=== PATIENT | female | born 1970 | race Caucasian/White ===

== ENCOUNTER → 2016-08-17 | Outpatient (CLI) | payer OTHER ==
[~2016-08-17] MED LIST: CHOL400T PO; COEN1CAP17 PO; CYAN100T PO; DEXL60CA4 PO; GABA-113 PO; GLUCTAB7 PO; IBUP-103 PO; LYR/50 PO; METH500T37 PO; OMEG10002 PO
--- NOTE | 2016-08-17 16:37 | DIAGNOSTIC IMAGING REPORT ---
ULTRASOUND OF THE THYROID GLAND CLINICAL HISTORY: Nontoxic multinodular goiter. COMPARISON STUDY: Thyroid ultrasound dated 11/07/2011. TECHNIQUE: Real-time, grayscale, and color flow sonography of the thyroid gland is performed utilizing a high-frequency linear transducer. Images are reviewed in the transverse and longitudinal planes. FINDINGS: Right lobe: The right lobe of the thyroid gland is normal in size and homogeneous in echotexture, measuring 5.2 x 1.4 x 1.8 cm. A hypoechoic nodule in the posterior midpole measures 1.1 x 0.8 x 0.9 cm (previously measured 1.1 x 0.7 x 0.9 cm) Left lobe: The left lobe of the thyroid gland is normal in size and homogeneous in echotexture, measuring 4.9 x 0.9 x 1.4 cm. A hypoechoic nodule in the posterior midpole measures 0.8 x 0.4 x 0.7 cm (previously measured 0.6 x 0.3 x 0.5 cm). Isthmus: The thyroid isthmus is normal in appearance and measures 0.2 cm in AP diameter. IMPRESSION: Bilateral thyroid nodules as above, not significantly changed from 11/07/2011. Electronically signed by: Solomon Nunez M.D. 08/17/2016 4:36 PM Dictated Date/Time: 08/17/2016 4:34 PM
[2016-08-17 17:40] LABS: THYROID STIMULATING HORMONE 0.925 uIu/ml (0.300-4.500)
== END | disposition home or self-care (01) ==
LOC: C.ULTR 16:00
PROVIDERS: ATTEND Nurse Practitioner Family
DX: E04.2 Nontoxic multinodular goiter (principal)

== ENCOUNTER → 2016-08-31 | Outpatient (CLI) | payer OTHER ==
[~2016-08-31] MED LIST changes: +GADAVIST IV PRN
--- NOTE | 2016-08-31 14:34 | DIAGNOSTIC IMAGING REPORT ---
BRAIN COMBO FOR MS CLINICAL HISTORY: Double vision. Memory loss. Vision loss. COMPARISON STUDY: MRI of the brain September 15, 2014. TECHNIQUE: Utilizing 1.5 Gracie magnet, multiplanar, multiecho imaging of the brain was performed pre and postcontrast administration. Injection of 5.9 cc of Gadavist IV was uneventful. FINDINGS: No areas of restricted diffusion. Brain volume is normal. No acute intracranial hemorrhage, midline shift or mass effect is present. Ventricular system is normal. The basilar cisterns are patent. There are no extra-axial collections. No intracranial masses or areas of pathologic enhancement are present. The bilateral mastoid air cells are partially opacified. There is mucosal thickening within air-fluid level within the left maxillary sinus which is largely opacified. There is extensive mucosal thickening of the left ethmoid sinuses and moderate mucosal thickening of the right sphenoid sinus. There is partial opacification of the frontal sinuses. Orbits are unremarkable. A few punctate white matter T2 hyperintense foci are noted. IMPRESSION: 1. No acute intracranial findings. 2. No intracranial masses or pathologic enhancement. 3. A few punctate foci signal abnormality within the white matter, which could reflect the sequela of migraine headaches or minimal small vessel disease. 4. Extensive sinusitis, including suspected acute left maxillary sinusitis. 5. Partially opacified bilateral mastoid air cells. Electronically signed by: Sameer Ramos M.D. 08/31/2016 1:10 PM Dictated Date/Time: 08/31/2016 12:59 PM
== END | disposition home or self-care (01) ==
LOC: C.MRI 11:34
PROVIDERS: ATTEND Physician Assistant
DX: H53.129 Transient visual loss, unspecified eye (principal); H53.2 Diplopia; H57.10 Ocular pain, unspecified eye; M62.81 Muscle weakness (generalized); R41.3 Other amnesia

== ENCOUNTER 2016-12-10 08:28 | Emergency (ER) | payer OTHER ==
[~2016-12-10] VITALS: Ht 167.6 cm; Wt 58.0 kg
[~2016-12-10 08:28] MED LIST changes: -CHOL400T PO; -COEN1CAP17 PO; -GADAVIST IV PRN; -GLUCTAB7 PO; -LYR/50 PO; -OMEG10002 PO
[2016-12-10 08:29] VITALS: TEMP 36.5; Ht 167.6 cm; Wt 58.0 kg
[2016-12-10 08:41] VITALS: O2SAT 100
[2016-12-10] MEDS ORDERED: SODIUM CHLORIDE 0.9% 1000ML 1,000 ML IV STA (09:04)
--- NOTE | 2016-12-10 09:16 | EMERGENCY ROOM VISIT NOTE ---
History First contact with patient: 08:51 Chief Complaint: SYNCOPE (NEAR SYNCOPE) Stated Complaint: SYNCOPE,NUMBNESS,BACK PAIN,LACK OF OXYGEN Nursing Triage Summary: near syncope today while having a BM today History of Present Illness The patient is a 46 year old female who presents to the Emergency Room with complaints of near syncope this morning at about 7:30 AM. Patient states she was on the toilet trying to have a bowel movement when she felt a sudden sharp pain in her rectum and became lightheaded, weak all over, diaphoretic, short of breath, and states she felt like she was going to pass out. Patient states she called out for her , who came into the bathroom and caught her, so she did not fall or have any injuries. Patient states she did not go completely unconscious. Patient states she has had a similar episode like this twice in the past about 3 or 4 years ago, both times while she was tried to have a bowel movement. She denies any headache, vision changes, chest pain, palpitations, back pain, abdominal pain, nausea or vomiting, diarrhea, urinary symptoms, or rash. She states she has been generally well recently. Patient does note that she recently returned on a flight from [facility] 4 days ago. She denies any exogenous estrogen use, leg pain or swelling. Review of Systems A complete 10 point review of systems was reviewed with the patient with pertinent positives and negatives as per history of present illness. All else were negative. Past Medical/Surgical History Medical Problems: (1) Kidney disease (2) Thyroid-related proptosis Surgical Problems: (1) History of appendectomy (2) History of thyroidectomy Family History Kidney disease Kidney stones Social History Smoking Status: Never Smoker Alcohol Use: none Drug Use: none Marital Status: Housing Status: lives with family Occupation Status: unemployed Current/Historical Medications Scheduled Cholecalciferol (Vitamin D), 400 UNITS PO DAILY Coenzyme Q10 (Ubidecarenone) (Co Q 10), 100 MG PO DAILY Cyanocobalamin (Vitamin B-12), 100 MCG PO DAILY Dexlansoprazole (Dexilant), 60 MG PO DAILY Opgtwjihvwo-Utfiugrhyyw-Bnz C- (Glucosamine Chondroitin), 1 TAB PO DAILY [place]-3 Fatty Acids (Fish Oil), 1,000 MG PO BID Pregabalin (Lyrica), 50 MG PO BID Scheduled PRN Ibuprofen Tab (Advil), 400 MG PO Q4 PRN for Pain Methocarbamol (Robaxin), 500 MG PO DAILY PRN for Muscle Spasms Allergies Coded Allergies: Ciprofloxacin (Unverified Allergy, Unknown, ., 12/10/16) Physical Exam Vital Signs Date Time Temp Pulse Resp B/P (MAP) Pulse Ox O2 Delivery O2 Flow Rate FiO2 12/10/16 11:45 60 15 98/62 99 Room Air 12/10/16 10:46 51 16 120/70 100 Room Air 12/10/16 09:35 52 16 100/67 99 Room Air 12/10/16 09:31 52 12/10/16 09:19 51 104/67 58 117/62 67 113/70 12/10/16 08:41 100 Room Air 12/10/16 08:29 36.5 61 18 111/74 100 Room Air Physical Exam CONSTITUTIONAL: No acute distress. Well hydrated. Well appearing and well nourished. Alert and oriented X 4 with normal affect. HEENT: Normocephalic, atraumatic. Pupils equal, round and reactive to light, EOMI. TMs normal. Pharynx normal. Moist mucous membranes. NECK: Supple, full active range of motion without discomfort. RESPIRATORY: Clear to auscultation bilaterally with no wheezing, crackles, rhonchi or stridor. Equal expansion bilaterally. CARDIOVASCULAR: Regular rate and rhythm with no murmurs, rubs or gallops. Normal peripheral perfusion. No edema. GASTROINTESTINAL: Soft, nontender, nondistended. Bowel sounds present in all quadrants. MUSCULOSKELETAL: Full range of motion of all joints without discomfort. No calf pain, erythema, or swelling noted. INTEGUMENTARY: No rash or other significant dermatologic conditions noted. NEUROLOGIC: Cranial nerves II-XII grossly intact. No focal neurologic deficits noted. Medical Decision & Procedures ER Provider Diagnostic Interpretation: CHEST 2 VIEWS ROUTINE CLINICAL HISTORY: EVALUATE ALTERED MENTAL STATUS/WEAKNESS dyspnea COMPARISON STUDY: No previous studies for comparison. FINDINGS: The bones soft tissues and hemidiaphragms are normal. The cardiomediastinal silhouette is normal. The lungs are clear. The pulmonary vasculature is normal. IMPRESSION: Negative chest. Laboratory Results 12/10/16 08:45 Red Blood Count 4.75, Mean Corpuscular Volume 90.9, Mean Corpuscular Hemoglobin 31.8, Mean Corpuscular Hemoglobin Concent 35.0, Mean Platelet Volume 11.2, Neutrophils (%) (Auto) 62.0, Lymphocytes (%) (Auto) 23.9, Monocytes (%) (Auto) 9.1, Eosinophils (%) (Auto) 4.4, Basophils (%) (Auto) 0.4, Neutrophils # (Auto) 3.40, Lymphocytes # (Auto) 1.31, Monocytes # (Auto) 0.50, Eosinophils # (Auto) 0.24, Basophils # (Auto) 0.02 12/10/16 08:45 Test 12/10/16 08:45 12/10/16 09:19 12/10/16 09:26 12/10/16 09:29 White Blood Count 5.48 K/uL (4.8-10.8) Red Blood Count 4.75 M/uL (4.2-5.4) Hemoglobin 15.1 g/dL (12.0-16.0) Hematocrit 43.2 % (37-47) Mean Corpuscular Volume 90.9 fL (80-100) Mean Corpuscular Hemoglobin 31.8 pg (25-34) Mean Corpuscular Hemoglobin Concent 35.0 g/dl (32-36) Platelet Count 252 K/uL (130-400) Mean Platelet Volume 11.2 fL (7.4-10.4) Neutrophils (%) (Auto) 62.0 % Lymphocytes (%) (Auto) 23.9 % Monocytes (%) (Auto) 9.1 % Eosinophils (%) (Auto) 4.4 % Basophils (%) (Auto) 0.4 % Neutrophils # (Auto) 3.40 K/uL (1.4-6.5) Lymphocytes # (Auto) 1.31 K/uL (1.2-3.4) Monocytes # (Auto) 0.50 K/uL (0.11-0.59) Eosinophils # (Auto) 0.24 K/uL (0-0.5) Basophils # (Auto) 0.02 K/uL (0-0.2) RDW Standard Deviation 41.1 fL (36.4-46.3) RDW Coefficient of Variation 12.2 % (11.5-14.5) Immature Granulocyte % (Auto) 0.2 % Immature Granulocyte # (Auto) 0.01 K/uL (0.00-0.02) Anion Gap 6.0 mmol/L (3-11) Est Creatinine Clear Calc Drug Dose 68.5 ml/min Estimated GFR () 84.3 Estimated GFR (Non- 72.8 BUN/Creatinine Ratio 15.3 (10-20) Calcium Level 9.5 mg/dl (8.5-10.1) Magnesium Level 2.0 mg/dl (1.8-2.4) Total Bilirubin 0.8 mg/dl (0.2-1) Direct Bilirubin 0.1 mg/dl (0-0.2) Aspartate Amino Transf (AST/SGOT) 21 U/L (15-37) Alanine Aminotransferase (ALT/SGPT) 26 U/L (12-78) Alkaline Phosphatase 57 U/L (45-117) Total Protein 8.2 gm/dl (6.4-8.2) Albumin 4.3 gm/dl (3.4-5.0) Thyroid Stimulating Hormone (TSH) 1.260 uIu/ml (0.300-4.500) Bedside D-Dimer 333 ng/mlFEU (0-450) Bedside Glucose 79 mg/dl (70-90) Urine Color YELLOW Urine Appearance CLOUDY (CLEAR) Urine pH 6.5 (4.5-7.5) Urine Specific [place] 1.021 (1.000-1.030) Urine Protein NEG (NEG) Urine Glucose (UA) NEG (NEG) Urine Ketones NEG (NEG) Urine Occult Blood TRACE (NEG) Urine Nitrite NEG (NEG) Urine Bilirubin NEG (NEG) Urine Urobilinogen NEG (NEG) Urine Leukocyte Esterase SMALL (NEG) Urine WBC (Auto) 5-10 /hpf (0-5) Urine RBC (Auto) 5-10 /hpf (0-4) Urine Hyaline Casts (Auto) 1-5 /lpf (0-5) Urine Epithelial Cells (Auto) >30 /lpf (0-5) Urine Bacteria (Auto) 2+ (NEG) Urine Test NEG (NEG) Medications Administered Medications (Trade) Dose Ordered Sig/Sarath Route Start Time Stop Time Status Last Admin Dose Admin Sodium Chloride 1,000 ml @ 999 mls/hr Q1H1M STAT IV 12/10/16 09:04 12/10/16 10:04 DC 12/10/16 09:24 999 MLS/HR ECG Indication: syncope Rate (beats per minute): 54 Rhythm: sinus bradycardia Findings: no acute ischemic change, no ectopy Change: no significant change (03/23/2015; rate decreased by 33 bpm, no other significant changes) Medical Decision CC: Patient presenting with complaint of near syncope Interpretation of Labs: No leukocytosis, no anemia, no significant electrolyte abnormalities, normal renal function, normal liver enzymes, negative d-dimer. Urinalysis shows small leuk esterase with few bacteria and many epithelial cells. Differential Diagnosis: Includes, but not limited to presyncope versus syncope, orthostatic, vasovagal, arrhythmia, PE, electrolyte abnormality, dehydration, anemia, among others. Medication Reconciliation: I attest that I have personally reviewed the patient' s current medication list. Vital signs review: I reviewed the patient's vital signs and interpret them as follows: T: Afebrile; BP: Normotensive; HR: Bradycardic; RR: Within normal limits; Pulse Ox: Within normal limits on room air. Blood pressure screening: The patient was found to have normal blood pressure on screening and does not require follow-up for repeat blood pressure check. Summary: Patient was evaluated at bedside, history of physical exam performed. Patient is alert and in no acute distress, resting quietly in the stretcher. She has no complaints at this time and states full resolution of her symptoms prior to arrival. Orders were placed at bedside for labs, urinalysis, EKG, chest x-ray, IV fluids to evaluate for syncope. Patient discussed with Dr. Cao, who agrees with my assessment and plan. Labs reviewed as above, no acute abnormalities. D-dimer is negative. Patient is without urinary symptoms, favor contaminant rather than UTI. Urine culture pending. EKG reviewed, sinus bradycardia with no acute ischemic changes. Chest x-ray reviewed, no acute abnormalities. Patient reassessed multiple times throughout ED stay, she remains without return of her symptoms, and states she feels a little better after IV fluids. Patient has been up ambulating to the bathroom and has not had any adverse symptoms. Patient and family members updated on all results and plan for discharge home, I encouraged close follow-up with the PCP, they verbalized understanding. Patient was discharged home in stable condition and ambulatory. Impression Primary Impression: Vasovagal near syncope Departure Information Dispostion Home / Self-Care Condition GOOD Referrals Cody Bravo III, CRNP (PCP) Patient Instructions ED Near Syncope Vasovagal, My [facility] Additional Instructions You have been treated in the Emergency Department today for near-syncope. Laboratory results and imaging have ruled out any emergent reasons for further evaluation or admission. Your near-syncope was most likely caused by a vasovagal reaction, but could also be related to dehydration. It is important that you maintain adequate hydration with oral fluids. Some suggestions include: - Water is the IDEAL replacement for lost fluids. You should initially sip at the water to help facilitate increased intestinal absorption rate and to decrease the possibility of nausea/vomiting. - Carbohydrate/Electrolyte-Containing Drinks (i.e. Gatorade, Powerade, Pedialyte ). All of these are good choices, but it is important to remember that all of these drinks contain a high concentration of sugar. - Popsicles, ice chips, and fruit juices are all other options. - My FAVORITE dehydration remedy is to mix a 1:1 solution of bottled Gatorade with bottled water. This dilution allows for a palatable flavor with added benefit of a reduction in the amount of sugar consumption. As with all Emergency Department visits, you should follow-up with your Primary Care Provider in 2-3 days for reevaluation. Return to the Emergency Department if your current symptoms worsen despite treatment course outlined above, or if you develop any of the following symptoms : Chest pain, shortness of breath, palpitations, severe dizziness or passing out , confusion, sluggishness, high fevers, or decreased urine output.
[2016-12-10 09:24] LABS: BASO % 0.4 %; BASO ABS # 0.02 K/uL (0-0.2); COMPLETE YES; EOS % 4.4 %; HEMATOCRIT 43.2 % (37-47); IG% 0.2 %; LYMPH % 23.9 %; LYMPH ABS # 1.31 K/uL (1.2-3.4); MEAN CELL VOLUME 90.9 fL (80-100); MEAN CORPUSCULAR HEMOGLOBIN 31.8 pg (25-34); MEAN PLATELET VOLUME 11.2 fL (7.4-10.4); MONO % 9.1 %; PLATELET COUNT 252 K/uL (130-400); RED BLOOD COUNT 4.75 M/uL (4.2-5.4); WHITE BLOOD COUNT 5.48 K/uL (4.8-10.8)
[2016-12-10 09:33] LABS: BUN/CREATININE RATIO 15.3 (10-20); CALCIUM 9.5 mg/dl (8.5-10.1); CREATININE 0.94 mg/dl (0.60-1.20); POTASSIUM 3.9 mmol/L (3.5-5.1)
[2016-12-10] MEDS ORDERED: LYR/50 PO (09:33)
[2016-12-10] MEDS ORDERED: COEN1CAP17 PO (09:33)
[2016-12-10] MEDS ORDERED: CHOL400T PO (09:33)
[2016-12-10] MEDS ORDERED: GLUCTAB7 PO (09:33)
[2016-12-10] MEDS ORDERED: OMEG10002 PO (09:33)
[2016-12-10 09:44] LABS: THYROID STIMULATING HORMONE 1.26 uIu/ml (0.300-4.500)
[2016-12-10 09:54] LABS: URINE APPEARANCE CLOUDY (CLEAR); URINE BILIRUBIN NEG (NEG); URINE COLOR YELLOW; URINE EPITHELIAL CELL AUTO >30 /lpf (0-5); URINE NITRITE NEG (NEG); URINE PH 6.5 (4.5-7.5); URINE SPECIFIC GRAVITY 1.021 (1.000-1.030); UROBILINOGEN NEG (NEG)
[2016-12-10 09:56] LABS: MANUAL MICROSCOPIC REQUIRED? NO; REVIEW REQ? NO
--- NOTE | 2016-12-10 10:51 | DIAGNOSTIC IMAGING REPORT ---
CHEST 2 VIEWS ROUTINE CLINICAL HISTORY: EVALUATE ALTERED MENTAL STATUS/WEAKNESS dyspnea COMPARISON STUDY: No previous studies for comparison. FINDINGS: The bones soft tissues and hemidiaphragms are normal. The cardiomediastinal silhouette is normal. The lungs are clear. The pulmonary vasculature is normal. IMPRESSION: Negative chest. The above report was generated using voice recognition software. It may contain grammatical, syntax or spelling errors. Electronically signed by: Pratik Denis M.D. 12/10/2016 10:50 AM Dictated Date/Time: 12/10/2016 10:49 AM
[2016-12-10 11:45] VITALS: BP 98/62; PULSE 60; O2SAT 99
== END 2016-12-10 11:51 | disposition home or self-care (01) ==
LOC: C.EDB 08:29
DX: R55 Syncope and collapse (principal); R42 Dizziness and giddiness; R06.02 Shortness of breath; E89.0 Postprocedural hypothyroidism; Z90.89 Acquired absence of other organs; Z84.1 Family history of disorders of kidney and ureter

== ENCOUNTER → 2016-12-22 | Outpatient (CLI) | payer OTHER ==
[~2016-12-22] MED LIST changes: +CHOL400T PO; +COEN1CAP17 PO; -GABA-113 PO; +GLUCTAB7 PO; +LYR/50 PO; +OMEG10002 PO
[2016-12-22 10:04] LABS: BASO % 0.5 %; BASO ABS # 0.02 K/uL (0-0.2); COMPLETE YES; EOS % 4.2 %; HEMATOCRIT 40.1 % (37-47); IG% 0.2 %; LYMPH % 23.7 %; LYMPH ABS # 0.97 K/uL (1.2-3.4); MEAN CELL VOLUME 92.2 fL (80-100); MEAN CORPUSCULAR HGB CONC 34.7 g/dl (32-36); MEAN PLATELET VOLUME 10.6 fL (7.4-10.4); MONO % 9.5 %; NEUT % 61.9 %; PLATELET COUNT 244 K/uL (130-400); RED BLOOD COUNT 4.35 M/uL (4.2-5.4); WHITE BLOOD COUNT 4.09 K/uL (4.8-10.8)
[2016-12-22 10:38] LABS: ALT/SGPT 22 U/L (12-78); BLOOD UREA NITROGEN 11 mg/dl (7-18); BUN/CREATININE RATIO 12.8 (10-20); CARBON DIOXIDE 30 mmol/L (21-32); CHLORIDE 104 mmol/L (98-107); CREATININE 0.86 mg/dl (0.60-1.20); GLUCOSE 94 mg/dl (70-99); MAGNESIUM 2.1 mg/dl (1.8-2.4); SODIUM 140 mmol/L (136-145)
[2016-12-22 10:49] LABS: ALB/GLOB RATIO 1.2 (0.9-2); ALKALINE PHOSPHATASE 60 U/L (45-117); AST/SGOT 18 U/L (15-37); FERRITIN 20.5 ng/ml (8.0-388.0)
--- NOTE | 2016-12-27 08:46 | CODING QUERY MEDICAL NECESSITY ---
SUPPORTING DIAGNOSIS NEEDED Lawrence MCQUEEN, A supporting diagnosis is required for the test/procedure performed on this patient in order for us to be reimbursed by the patient's insurance. Please provide a supporting diagnosis for the following test/procedure listed below next to the test name along with your signature. *If there is no additional diagnosis for this patient that would support the following test/procedure please document that below next to the test/procedure. Test(s)/Procedure(s) that require a supporting diagnosis: * [id number] VITAMIN D ASSAY DIAGNOSIS: DATE OF SERVICE: 12/22/16 Provider Signature: Date: Thank you Masood Camacho [facility] Information Management Once completed, please kindly fax back to [phone] For questions please call [phone]
== END | disposition home or self-care (01) ==
LOC: C.LAB 09:27
PROVIDERS: ATTEND Nurse Practitioner Family
DX: R53.83 Other fatigue (principal)

== ENCOUNTER → 2017-06-08 | Outpatient (CLI) | payer OTHER | END | disposition home or self-care (01) | LOC: C.PAPS 11:40 | PROVIDERS: ATTEND Obstetrics & Gynecology | DX: Z12.4 Encounter for screening for malignant neoplasm of cervix (principal) ==

== ENCOUNTER → 2017-06-11 | Outpatient (CLI) | payer OTHER ==
[2017-06-11 12:14] LABS: HEMATOCRIT 44.3 % (37-47); HEMOGLOBIN 15.2 g/dL (12.0-16.0); MEAN CELL VOLUME 92.7 fL (80-100); MEAN CORPUSCULAR HEMOGLOBIN 31.8 pg (25-34); MEAN CORPUSCULAR HGB CONC 34.3 g/dl (32-36); MEAN PLATELET VOLUME 10.9 fL (7.4-10.4); PLATELET COUNT 243 K/uL (130-400); RED CELL DISTRIBUTION WIDTH CV 12.4 % (11.5-14.5); RED CELL DISTRIBUTION WIDTH SD 41.7 fL (36.4-46.3); WHITE BLOOD COUNT 7.41 K/uL (4.8-10.8)
[2017-06-11 12:55] LABS: ALBUMIN 4.1 gm/dl (3.4-5.0); ALT/SGPT 36 U/L (12-78); AST/SGOT 18 U/L (15-37); BLOOD UREA NITROGEN 12 mg/dl (7-18); CARBON DIOXIDE 28 mmol/L (21-32); CREATININE 0.75 mg/dl (0.60-1.20); GLUCOSE 95 mg/dl (70-99); POTASSIUM 4.2 mmol/L (3.5-5.1); SODIUM 137 mmol/L (136-145); URIC ACID 4.5 mg/dl (2.6-7.2)
[2017-06-11 12:56] LABS: ALKALINE PHOSPHATASE 56 U/L (45-117); TOTAL PROTEIN 7.9 gm/dl (6.4-8.2)
== END | disposition home or self-care (01) ==
LOC: C.LAB 10:38
PROVIDERS: ATTEND Obstetrics & Gynecology
DX: N20.0 Calculus of kidney (principal); N93.8 Other specified abnormal uterine and vaginal bleeding

== ENCOUNTER → 2017-06-19 | Outpatient (CLI) | payer OTHER ==
--- NOTE | 2017-06-20 15:40 | MAMMOGRAPHY REPORT ---
BILATERAL DIGITAL SCREENING MAMMOGRAM TOMOSYNTHESIS WITH CAD: 06/19/2017 CLINICAL HISTORY: Routine screening. During this screening appointment, the patient reported pain in her rib cage when she presses on it, in the approximate 2:00 to 3:00 right breast. TECHNIQUE: Breast tomosynthesis in addition to standard 2D mammography was performed. Current study was also evaluated with a Computer Aided Detection (CAD) system. COMPARISON: Comparison is made to exams dated: 04/06/2016 mammogram, 01/27/2015 mammogram, 12/19/2013 u ltrasound, 12/19/2013 mammogram, and 10/24/2013 mammogram - [facility]. BREAST COMPOSITION: The tissue of both breasts is heterogeneously dense, which may obscure small mas ses. FINDINGS: The parenchymal pattern is unchanged. No developing mass, architectural distortion or clus ter of suspicious microcalcifications is seen in either breast. IMPRESSION: ACR BI-RADS CATEGORY 2: BENIGN There is no mammographic evidence of malignancy. A 1 year screening mammogram is recommended. The pa tient will receive written notification of the results. Approximately 10% of breast cancers are not detected with mammography. A negative mammographic report should not delay biopsy if a clinically suggestive mass is present. Katelyn Chang M.D. ay/:06/19/2017 16:10:24 [employer] Specialist: Torey ROGERS(Christa)(M), [facility] letter sent: Normal 1/2 BI-RADS Code: ACR BI-RADS Category 2: Benign
== END | disposition home or self-care (01) ==
LOC: C.MAMM 08:40
PROVIDERS: ATTEND Obstetrics & Gynecology
DX: Z12.31 Encounter for screening mammogram for malignant neoplasm of breast (principal)

== ENCOUNTER 2017-09-20 15:59 | Emergency (ER) | payer OTHER ==
[~2017-09-20] VITALS: Ht 165.1 cm; Wt 61.1 kg
[2017-09-20 16:13] VITALS: TEMP 36.8; Ht 165.1 cm; Wt 61.1 kg
[2017-09-20] MEDS ORDERED: DOXYCYCLINE HYCLATE 100 MG CAP PO STA (16:45)
--- NOTE | 2017-09-20 16:48 | EMERGENCY ROOM VISIT NOTE ---
History First contact with patient: 16:20 Chief Complaint: BITE Stated Complaint: TICK BITE History of Present Illness The patient is a 46 year old female who presents to the Emergency Room via private vehicle with complaints of "tick bite". The patient states that she noticed a tick bite on the right proximal inner thigh that could have been there for up to 1 day in time. She notes that about 3 hours ago. She denies any fevers, chills, rashes. No history of tick bites. She has a history of false positive Lyme testing in the past with her underlying history of fibromyalgia. She denies chance of . Review of Systems A complete 6-point Review of Systems was discussed with the patient, with pertinent positives and negatives listed in the History of Present Illness. All remaining Review of Systems questions can be considered negative unless otherwise specified. Past Medical/Surgical History Medical Problems: (1) Kidney disease (2) Thyroid-related proptosis Surgical Problems: (1) History of appendectomy (2) History of thyroidectomy Family History Kidney disease Kidney stones Social History Smoking Status: Never Smoker Alcohol Use: none Drug Use: none Marital Status: Housing Status: lives with family Occupation Status: unemployed Current/Historical Medications Scheduled Cholecalciferol (Vitamin D), 400 UNITS PO DAILY Coenzyme Q10 (Ubidecarenone) (Co Q 10), 100 MG PO DAILY Cyanocobalamin (Vitamin B-12), 100 MCG PO DAILY Dexlansoprazole (Dexilant), 60 MG PO DAILY Gkvkewiltgq-Rninmbjifad-Bau C- (Glucosamine Chondroitin), 1 TAB PO DAILY [place]-3 Fatty Acids (Fish Oil), 1,000 MG PO BID Pregabalin (Lyrica), 50 MG PO BID Scheduled PRN Ibuprofen Tab (Advil), 400 MG PO Q4 PRN for Pain Methocarbamol (Robaxin), 500 MG PO DAILY PRN for Muscle Spasms Physical Exam Vital Signs Date Time Temp Pulse Resp B/P (MAP) Pulse Ox O2 Delivery O2 Flow Rate FiO2 09/20/17 16:13 36.8 66 16 139/98 99 Room Air Physical Exam VITAL SIGNS - Vital signs and nursing notes were reviewed. Stable. GENERAL -46-year-old female appearing her stated age who is in no acute distress. Communicates well with provider and answers questions appropriately. SKIN -on the right proximal inner thigh there is a small retained tick bite without engorgement. Minimal surrounding erythema less than 1 cm in diameter. No bull's-eye rash Medical Decision & Procedures Medical Decision Patient was seen and evaluated as above in room D6. Review was performed of nursing notes and vital signs. After obtaining a thorough history and physical examination it was evident that she was experiencing a tick bite which is likely less than 24 hours in duration as there is no engorgement of the tick. After obtaining consent, I utilized the [place] tick twister. This was with successful removal of the entire tick. Mouthparts and legs were intact. Region was cleansed with alcohol prep. She was given 200 mg of doxycycline as Lyme disease prophylaxis in the event that this could have been greater than [address] No contraindication. No allergy and she is not . She is to follow with her family doctor for further evaluation and management. The patient was educated upon management, had questions answered prior to discharge , and was discharged home in good condition. She was offered tetanus booster here but notes that she will follow with the family doctor. In the evaluation and treatment of this patient the following differential diagnoses were entertained: Tick bite, cellulitis, Lyme disease, among others. Impression Primary Impression: Tick bite Departure Information Dispostion Home / Self-Care Condition GOOD Referrals Cody Bravo III, CRNP (PCP) Patient Instructions Bites Tick, ED Facts Tick, [facility] Additional Instructions You were seen in the emergency department for a tick bite on your right thigh. Please watch for signs of infection to include redness, swelling, drainage or discharge. If these occur please return. You were given 200 mg of doxycycline 1 for Lyme disease prophylaxis given the tick bite. Please call your family doctor to schedule follow-up as we discussed likely in early September. Please return with any new/concerning symptoms.
[2017-09-20 17:04] VITALS: BP 127/73; PULSE 74; O2SAT 98
== END 2017-09-20 17:04 | disposition home or self-care (01) ==
LOC: C.EDB 16:00 → C.EDD 17:04
DX: S70.361A Insect bite (nonvenomous), right thigh, initial encounter (principal); W57.XXXA Bitten or stung by nonvenomous insect and other nonvenomous arthropods, initial encounter; N28.9 Disorder of kidney and ureter, unspecified; Z79.899 Other long term (current) drug therapy; Z84.1 Family history of disorders of kidney and ureter

== ENCOUNTER → 2018-01-01 | Outpatient (CLI) | payer OTHER ==
[~2018-01-01] MED LIST changes: +METH-445 PO; -METH500T37 PO
--- NOTE | 2018-01-01 14:45 | DIAGNOSTIC IMAGING REPORT ---
PELVIC ULTRASOUND CLINICAL HISTORY: Pelvic pain. COMPARISON STUDY: Pelvic ultrasound February 16, [address] of the abdomen and pelvis October 23, 2013. TECHNIQUE: Transabdominal and transvaginal sonography of the pelvis was performed. FINDINGS: The uterus measures 7.3 x 4.9 x 6 cm. A 1.3 cm left anterior body fibroid is noted. Endometrium measures 1 cm in thickness. The right ovary measures 4.1 x 2 x 2.8 cm. A 1.6 cm isoechoic focus within the right ovary with associated increased vascularity may reflect a corpus luteal cyst. The left ovary measures 4 x 2.2 x 1.9 cm. There is color flow within each ovary. A small amount of fluid within the pelvis is noted. IMPRESSION: 1. No sonographic evidence of ovarian torsion. 2. Small amount of fluid within the pelvis. 3. Possible 1.6 cm right ovarian corpus luteal cyst. 4. 1.3 cm fibroid. Electronically signed by: Sameer Ramos M.D. 01/01/2018 2:44 PM Dictated Date/Time: 01/01/2018 2:41 PM
== END | disposition home or self-care (01) ==
LOC: C.ULTR 13:51
PROVIDERS: ATTEND Nurse Practitioner Family
DX: D25.9 Leiomyoma of uterus, unspecified (principal)